=== PATIENT | male | born 1950 | race Caucasian/White ===

== ENCOUNTER → 2023-04-27 | Outpatient (CLI) | payer OTHER | END | disposition home or self-care (01) | LOC: LAB 12:52 | PROVIDERS: ATTEND Family Medicine | DX: E78.2 Mixed hyperlipidemia (principal); E78.5 Hyperlipidemia, unspecified; E55.9 Vitamin D deficiency, unspecified; J44.0 Chronic obstructive pulmonary disease with (acute) lower respiratory infection; R74.01 Elevation of levels of liver transaminase levels; R73.09 Other abnormal glucose | CPT/HCPCS: 82270 ==

== ENCOUNTER → 2023-07-03 | Outpatient (CLI) | payer OTHER ==
[2023-07-03 11:27] LABS: Alanine Aminotransferase 44 U/L (7-40); Albumin 4.4 g/dL (3.2-4.8); Alkaline Phosphatase 87 U/L (46-116); Anion Gap 7 (5-15); Aspartate Aminotransferase 27 U/L (13-40); BUN/Creatinine Ratio 16.9 (10.0-20.0); Blood Urea Nitrogen 14 mg/dL (9-23); Calcium 9.3 mg/dL (8.5-10.1); Carbon Dioxide 26 mmol/L (20-30); Chloride 107 mmol/L (98-107); Cholesterol 133 mg/dL (< 200); Glucose 92 mg/dL (74-106); LDL Cholesterol 73 mg/dL (< 100); Potassium 4.7 mmol/L (3.5-5.1); Sodium 140 mmol/L (136-145); Triglycerides 67 mg/dL (< 150)
[2023-07-03 11:28] LABS: Bilirubin, Total 1.1 mg/dL (0.2-1.0); HDL Cholesterol 54 mg/dL (40-59); Total Protein 7.1 g/dL (5.7-8.2)
== END | disposition home or self-care (01) ==
LOC: LAB 09:49
PROVIDERS: ATTEND Family Medicine
DX: Z12.11 Encounter for screening for malignant neoplasm of colon (principal); E78.2 Mixed hyperlipidemia; R73.09 Other abnormal glucose; E55.9 Vitamin D deficiency, unspecified; R74.9 Abnormal serum enzyme level, unspecified; Z85.820 Personal history of malignant melanoma of skin
CPT/HCPCS: 36415; 80053; 80061; 82306; 83036

== ENCOUNTER → 2023-12-30 | Outpatient (CLI) | payer OTHER ==
[2023-12-30 08:57] LABS: Albumin 4.2 g/dL (3.2-4.8); Bilirubin, Direct 0.3 mg/dL (<0.3); Bilirubin, Total 0.9 mg/dL (0.2-1.0)
[2023-12-30 08:58] LABS: Total Protein 6.9 g/dL (5.7-8.2)
== END | disposition home or self-care (01) ==
LOC: LAB 08:13
PROVIDERS: ATTEND Family Medicine
DX: E80.6 Other disorders of bilirubin metabolism (principal); E78.2 Mixed hyperlipidemia; N18.2 Chronic kidney disease, stage 2 (mild)
CPT/HCPCS: 36415; 80061; 80076; 82043

== ENCOUNTER → 2024-03-28 | Outpatient (CLI) | payer OTHER ==
[2024-03-28 08:10] LABS: Albumin 4.2 g/dL (3.2-4.8)
[2024-03-28 08:11] LABS: Bilirubin, Direct 0.3 mg/dL (<0.3); Total Protein 6.8 g/dL (5.7-8.2)
== END | disposition home or self-care (01) ==
LOC: LAB 06:15
PROVIDERS: ATTEND Family Medicine
DX: E78.2 Mixed hyperlipidemia (principal); E80.6 Other disorders of bilirubin metabolism
CPT/HCPCS: 36415; 80061; 80076

== ENCOUNTER 2024-06-21 10:10 | Day surgery (SDC) | payer OTHER, MEDICARE ==
[2024-06-20 15:12] LABS: Basophils # (auto) 0 10 ^3/uL (0-0.2); Basophils % (auto) 0.5 % (0.0-2.0); Eosinophils # (auto) 0.1 10 ^3/uL (0-0.8); Eosinophils % (auto) 0.7 % (0.0-7.0); Hematocrit 44.1 % (41.0-53.0); Hemoglobin 15.2 g/dL (13.5-17.5); Lymphocytes # (auto) 2.4 10 ^3/uL (0.4-5.4); Lymphocytes % (auto) 31.9 % (10.0-50.0); Mean Corpuscular Hemoglobin 31.6 pg (28.0-32.0); Mean Corpuscular Hgb Conc. 34.4 g/dL (32.0-36.0); Mean Corpuscular Volume 91.8 fL (80.0-100.0); Monocytes # (auto) 0.8 10 ^3/uL (0-1.3); Monocytes % (auto) 10.7 % (0.0-12.0); Neutrophils # (auto) 4.2 10 ^3/uL (1.6-8.6); Neutrophils % (auto) 56.2 % (37.0-80.0); Nucleated Red Blood Cells % 0.1 %; Platelet Count (auto) 206 10^3/uL (140-450); Red Blood Cells 4.81 10^6/uL (4.5-5.90); Red Cell Distribution Width 13.6 % (11.8-14.3); White Blood Cell 7.4 10^3/uL (4.4-10.8)
[2024-06-20 15:30] LABS: INR 0.99 (0.9-1.15); Partial Thromboplastin Time 29.1 SEC (24.5-34.5); Prothrombin Time 10.5 sec (9.3-11.8)
[2024-06-20 15:38] LABS: Alanine Aminotransferase 33 U/L (7-40); Albumin 4.4 g/dL (3.2-4.8); Alkaline Phosphatase 97 U/L (46-116); Anion Gap 6 (5-15); Aspartate Aminotransferase 23 U/L (13-40); BUN/Creatinine Ratio 23.1 (10.0-20.0); Bilirubin, Total 0.4 mg/dL (0.2-1.0); Calcium 9.9 mg/dL (8.7-10.4); Carbon Dioxide 27 mmol/L (20-31); Potassium 4.4 mmol/L (3.5-5.1); Sodium 142 mmol/L (136-145); Total Protein 7.3 g/dL (5.7-8.2)
[2024-06-20 15:43] LABS: Blood Urea Nitrogen 25 mg/dL (9-23); Chloride 109 mmol/L (98-107); Glucose 107 mg/dL (74-106)
[~2024-06-21] VITALS: Ht 190.5 cm; Wt 79.4 kg
[~2024-06-21 10:10] MED LIST: ATOR10TA52 PO; CALC667C PO; CHOL20007 PO; OMEG306C OR; SODIUM CHLORIDE LOCK 10 ML ONE
[2024-06-21] MEDS ORDERED: ONDANSETRON HCL 4 MG/2 ML VIAL ONE (14:12)
[2024-06-21] MEDS: ONDANSETRON HCL 4 MG/2 ML VIAL IV ONE (14:45)
[2024-06-21 16:00] VITALS: PULSE 87; RESP 16; O2SAT 100
[2024-06-21 16:05] VITALS: PULSE 87; RESP 16; O2SAT 100
[2024-06-21] MEDS: diphenhdrAMINE HCL 50 MG/1 ML VL ONE (16:05)
[2024-06-21] MEDS: fentaNYL CITRATE 100 MCG/2 ML VL ONE (16:05)
[2024-06-21] MEDS: LIDOCAINE VISCOUS 2% 15ML UD ONE (16:05)
[2024-06-21] MEDS: MIDAZOLAM HCL 5 MG/ML-1ML VIAL ONE (16:05)
[2024-06-21 16:20] VITALS: TEMP 97.4; O2SAT 96
--- NOTE | 2024-06-21 16:21 | DVHOP2 ---
Operative Report DATE OF OPERATION: 06/21/24 PROCEDURE: Upper Endoscopy with biopsy. PREOPERATIVE INDICATION: The patient is a 73 -year-old male undergoing endoscopy for chronic GERD and postprandial dyspepsia and epigastric pain POSTOPERATIVE DIAGNOSES: 1. 2 cm sliding-type hiatal hernia with grade B erosive esophagitis and esophageal ulcers of the GE junction from which biopsies were obtained 2. [id number] gastritis with pre-pyloric antral gastric erosions 3. Moderate duodenitis of the duodenal bulb and postbulbar area with superficial duodenal erosions and tiny ulcers but no active bleeding PROCEDURE PERFORMED BY: Rodri Lundy GI NURSE: Josefa SCOPE: Olympus videoendoscope. ASA CLASS: 2. PREOPERATIVE MEDICATIONS: Versed 5 mg, Fentanyl 100 mcg, Benadryl 50 mg I administered moderate sedation throughout this _9_ minutes procedure. An independent trained observer pushed medications at my direction, and monitored the patient's level of consciousness and physiological status throughout. PROCEDURE IN DETAIL: After obtaining an informed consent, the patient was placed on left lateral decubitus position. The patient was then sedated with the above medications. A bite block was placed between his teeth. The endoscope was then passed through the oropharynx, into the esophagus, and through the stomach and pylorus up to the second and third part of the duodenum. The endoscope was then withdrawn. The 2nd and 3rd part of the duodenum were normal. Duodenal bulb and postbulbar area showed moderate duodenitis. There were multiple duodenal erosions and two superficial duodenal ulcers. Duodenal biopsies were obtained The pre-pyloric area antrum and distal body showed gastritis with erosions hyperemia and some erythema. On retroflexion the fundus cardia and angularis were normal. Gastric biopsies were obtained. The endoscope was then withdrawn into the distal esophagus. He had a 2 cm sliding-type hiatal hernia. Patient had grade B erosive esophagitis with irregular squamocolumnar junction and distal GE junction ulceration from which biopsies were obtained The remaining distal and proximal esophagus and oropharynx were unremarkable The patient tolerated the procedure well without difficulty. COMPLICATIONS : None SPECIMENS: Duodenal biopsies Gastric biopsies Esophageal biopsies at GE junction DISPOSITION: Stable D/C to home PLAN: 1. Await for biopsy result 2. Will place pt on Protonix 40 mg bid 3. Carafate 1 g p.o. twice a day 4. DC aspirin NSAIDs smoking alcohol 5. Resume GI soft diet advance as tolerated 6. Outpatient follow up with me in 4-6 weeks to review results and discuss further management RODRI LUNDY MD Jun 21, 2024 16:21
[2024-06-21 17:05] VITALS: BP 127/66; PULSE 69; RESP 13; O2SAT 99
== END 2024-06-21 17:15 | disposition home or self-care (01) ==
LOC: GI 10:10
PROVIDERS: ATTEND Internal Medicine Gastroenterology
DX: R10.13 Epigastric pain (principal); K29.50 Unspecified chronic gastritis without bleeding; K29.80 Duodenitis without bleeding; K21.00 Gastro-esophageal reflux disease with esophagitis, without bleeding; K44.9 Diaphragmatic hernia without obstruction or gangrene; K22.10 Ulcer of esophagus without bleeding; K26.9 Duodenal ulcer, unspecified as acute or chronic, without hemorrhage or perforation; R10.9 Unspecified abdominal pain; Z79.899 Other long term (current) drug therapy; Z85.828 Personal history of other malignant neoplasm of skin; Z90.79 Acquired absence of other genital organ(s); Z98.890 Other specified postprocedural states; Z88.5 Allergy status to narcotic agent
CPT/HCPCS: 36415; 43239; 80053; 85025; 85610; 85730; 88305; 88312; 88342; J1200; J2250; J2405; J3010; J7030; 99152

== ENCOUNTER → 2024-07-22 | Outpatient (CLI) | payer OTHER ==
[~2024-07-22] MED LIST changes: -SODIUM CHLORIDE LOCK 10 ML ONE
[2024-07-22 07:26] LABS: Albumin 4.6 g/dL (3.2-4.8); Bilirubin, Total 1.1 mg/dL (0.2-1.0)
[2024-07-22 07:27] LABS: Bilirubin, Direct 0.3 mg/dL (<0.3); Total Protein 7.3 g/dL (5.7-8.2)
== END | disposition home or self-care (01) ==
LOC: LAB 06:17
PROVIDERS: ATTEND Family Medicine
DX: E78.5 Hyperlipidemia, unspecified (principal); E55.9 Vitamin D deficiency, unspecified; E80.6 Other disorders of bilirubin metabolism
CPT/HCPCS: 36415; 80061; 80076; 82306

== ENCOUNTER → 2024-09-16 | Outpatient (CLI) | payer OTHER ==
[2024-09-16 16:08] LABS: Urine Bacteria None Seen /hpf (None Seen)
[2024-09-16 18:48] LABS: Urine Blood Negative /uL (Negative); Urine Clarity Clear (Clear); Urine Color Light-Yellow (Yellow); Urine Protein, UAD Negative (Negative); Urine Specific Gravity 1.015 (1.001-1.035); Urine Squamous Epithelial Cell None Seen /hpf (<5); Urine Urobilinogen Normal (Negative); Urine WBC < 1 /HPF (0-3)
== END | disposition home or self-care (01) ==
LOC: LAB 16:04
PROVIDERS: ATTEND Urology
DX: C61 Malignant neoplasm of prostate (principal)
CPT/HCPCS: 81001; 87086

== ENCOUNTER → 2024-10-12 | Outpatient (CLI) | payer OTHER ==
[2024-10-12 07:37] LABS: Basophils # (auto) 0 10 ^3/uL (0-0.2); Basophils % (auto) 0.8 % (0.0-2.0); Eosinophils # (auto) 0.2 10 ^3/uL (0-0.8); Eosinophils % (auto) 3.8 % (0.0-7.0); Hemoglobin 14.6 g/dL (13.5-17.5); Lymphocytes % (auto) 33.1 % (10.0-50.0); Mean Corpuscular Hemoglobin 31.2 pg (28.0-32.0); Mean Corpuscular Volume 91.6 fL (80.0-100.0); Monocytes # (auto) 0.7 10 ^3/uL (0-1.3); Monocytes % (auto) 11.8 % (0.0-12.0); Neutrophils % (auto) 50.5 % (37.0-80.0); Nucleated Red Blood Cells % 0.1 %; Platelet Count (auto) 210 10^3/uL (140-450); Red Cell Distribution Width 13.7 % (11.8-14.3); White Blood Cell 5.9 10^3/uL (4.4-10.8)
[2024-10-12 07:52] LABS: Alanine Aminotransferase 28 U/L (7-40); Alkaline Phosphatase 92 U/L (46-116); Anion Gap 8 (5-15); Blood Urea Nitrogen 23 mg/dL (9-23); Calcium 9.7 mg/dL (8.7-10.4); Carbon Dioxide 26 mmol/L (20-31); Chloride 107 mmol/L (98-107); Glucose 100 mg/dL (74-106); Potassium 4.1 mmol/L (3.5-5.1); Sodium 141 mmol/L (136-145); Total Protein 7.2 g/dL (5.7-8.2)
[2024-10-12 07:53] LABS: Albumin 4.5 g/dL (3.2-4.8); Aspartate Aminotransferase 20 U/L (13-40); Bilirubin, Total 0.9 mg/dL (0.2-1.0)
[2024-10-13 18:07] LABS: Cholesterol 146 mg/dL (< 200); HDL Cholesterol 57 mg/dL (40-59); LDL Cholesterol 79 mg/dL (< 100); Triglycerides 55 mg/dL (< 150)
== END | disposition home or self-care (01) ==
LOC: LAB 06:49
PROVIDERS: ATTEND Family Medicine
DX: J44.9 Chronic obstructive pulmonary disease, unspecified (principal); E78.5 Hyperlipidemia, unspecified; R73.09 Other abnormal glucose; Z00.01 Encounter for general adult medical examination with abnormal findings; Z90.79 Acquired absence of other genital organ(s)
CPT/HCPCS: 36415; 80053; 80061; 82306; 83036; 84153; 84443; 85025

== ENCOUNTER → 2024-10-28 | Day surgery (SDC) | payer OTHER, MEDICARE ==
[2024-10-25 14:57] LABS: Basophils # (auto) 0.1 10 ^3/uL (0-0.2); Eosinophils # (auto) 0.2 10 ^3/uL (0-0.8); Eosinophils % (auto) 3.2 % (0.0-7.0); Hematocrit 42.8 % (41.0-53.0); Hemoglobin 14.5 g/dL (13.5-17.5); Lymphocytes % (auto) 32.8 % (10.0-50.0); Mean Corpuscular Hemoglobin 30.8 pg (28.0-32.0); Mean Corpuscular Hgb Conc. 33.8 g/dL (32.0-36.0); Mean Corpuscular Volume 91.1 fL (80.0-100.0); Monocytes # (auto) 0.8 10 ^3/uL (0-1.3); Monocytes % (auto) 13.5 % (0.0-12.0); Neutrophils # (auto) 3.1 10 ^3/uL (1.6-8.6); Neutrophils % (auto) 49.5 % (37.0-80.0); Nucleated Red Blood Cells % 0.2 %; Platelet Count (auto) 195 10^3/uL (140-450); Red Cell Distribution Width 13.8 % (11.8-14.3); White Blood Cell 6.2 10^3/uL (4.4-10.8)
[2024-10-25 15:01] LABS: INR 1.03 (0.9-1.15); Prothrombin Time 10.9 sec (9.3-11.8)
[2024-10-25 15:11] LABS: Alanine Aminotransferase 24 U/L (7-40); Albumin 4.4 g/dL (3.2-4.8); Alkaline Phosphatase 94 U/L (46-116); Anion Gap 5 (5-15); Aspartate Aminotransferase 18 U/L (13-40); BUN/Creatinine Ratio 18.9 (10.0-20.0); Blood Urea Nitrogen 17 mg/dL (9-23); Calcium 9.9 mg/dL (8.7-10.4); Carbon Dioxide 29 mmol/L (20-31); Chloride 107 mmol/L (98-107); Glucose 93 mg/dL (74-106); Potassium 4.9 mmol/L (3.5-5.1); Sodium 141 mmol/L (136-145); Total Protein 7.1 g/dL (5.7-8.2)
[2024-10-25 15:12] LABS: Bilirubin, Total 0.7 mg/dL (0.2-1.0)
[~2024-10-28] VITALS: Ht 190.5 cm; Wt 81.6 kg
[~2024-10-28] MED LIST changes: +SODIUM CHLORIDE LOCK 10 ML ONE
[2024-10-28 12:40] VITALS: PULSE 75; RESP 14; O2SAT 99
[2024-10-28] MEDS: fentaNYL CITRATE 100 MCG/2 ML VL ONE (12:43)
[2024-10-28] MEDS: MIDAZOLAM HCL 5 MG/ML-1ML VIAL ONE (12:43)
[2024-10-28] MEDS: diphenhdrAMINE HCL 50 MG/1 ML VL ONE (12:43)
[2024-10-28 13:05] VITALS: PULSE 78; RESP 14; O2SAT 98
--- NOTE | 2024-10-28 13:09 | DVHOP2 ---
Operative Report DATE OF OPERATION: 10/28/24 PROCEDURE: Diagnostic Colonoscopy. PREOPERATIVE INDICATION: The patient is a 74 -year-old male undergoing colonoscopy for colon cancer screening and abdominal pain POSTOPERATIVE DIAGNOSES: 1. Mild early sigmoid diverticular disease with a single small pocket noted 2. Mild tortuosity of the splenic flexure 3. Trace to 1+ internal hemorrhoids otherwise normal examination up to the cecum and terminal ileum PROCEDURE PERFORMED BY: Rodri Lundy M.D. SCOPE: Olympus videocolonoscope. ASA CLASS: 2. PREOPERATIVE MEDICATIONS: Versed 5 mg, Fentanyl 100 mcg, Benadryl 50 mg PROCEDURE IN DETAIL: After obtaining an informed consent, the patient was placed on left lateral decubitus position. He was then sedated with the above medications. A rectal examination was performed that was normal. The colonoscope was then passed through the anus into the rectosigmoid and through the descending, transverse, and ascending colon up to the cecum with visualization of the appendiceal orifice, base of the cecum and the ileocecal valve. The colonoscope was then withdrawn. The distal 5 cm of the terminal ileum were normal No polyps or masses were seen. There was no colitis. In the sigmoid colon there was a early single pocket of sigmoid diverticular disease noted Patient had [id number] tortuosity of the splenic flexure. On retroflexion and straight on view he had trace to 1+ internal hemorrhoids The patient tolerated the procedure well without difficulty. WITHDRAWAL TIME: 6 minutes QUALITY OF THE PREP: Wayside Bowel Prep score: 9. COMPLICATIONS : None SPECIMENS: None DISPOSITION: Stable D/C to home PLAN: 1. Repeat colonoscopy in 10 years 2. Resume GI soft diet advance as tolerated 3. Increase fluid and fiber intake 4. Outpatient follow up with me in 4-6 weeks to review results and discuss further management RODRI LUNDY MD Oct 28, 2024 13:09
[2024-10-28 13:55] VITALS: BP 120/95; PULSE 71; RESP 15; O2SAT 100
== END | disposition home or self-care (01) ==
LOC: GI 09:12
PROVIDERS: ATTEND Internal Medicine Gastroenterology
DX: R10.9 Unspecified abdominal pain (principal); K57.30 Diverticulosis of large intestine without perforation or abscess without bleeding; K63.89 Other specified diseases of intestine; E78.00 Pure hypercholesterolemia, unspecified; Z79.899 Other long term (current) drug therapy; Z87.11 Personal history of peptic ulcer disease; Z98.890 Other specified postprocedural states; Z90.79 Acquired absence of other genital organ(s); Z88.5 Allergy status to narcotic agent
CPT/HCPCS: 36415; 45378; 80053; 85025; 85610; 85730; J1200; J2250; J3010; J7030; 99152

== ENCOUNTER 2024-12-18 07:19 | Emergency (ER) | payer OTHER, MEDICARE ==
[~2024-12-18] VITALS: Ht 190.5 cm; Wt 75.8 kg
[~2024-12-18 07:19] MED LIST changes: -SODIUM CHLORIDE LOCK 10 ML ONE
--- NOTE | 2024-12-18 07:34 | ED.PDOC ---
Eye-HPI HPI Comments 74 y/o M, presents to the ED for CC of sore-throat and ear pain. Patient states, he has been experiencing symptoms of sore throat with associated itchiness, swelling, and ear pain x1day. Patient reports, having sick contacts at home which he believes may have been source of symptoms. Patient denies fever, cough, nausea, vomiting, or fatigue. No other symptoms or modifying factors present at this time. Time Seen by MD: 07:35 Reviewed Notes: Nurses Notes, Medications, Allergies Allergies: Coded Allergies: Codeine (Verified Allergy, Intermediate, Vomiting, 06/20/24) Home Meds Reported Medications [place]-3 Fatty Acids (FISH OIL) 306 Mg Cap, 306 MG OR, CAP 06/20/24 Cholecalciferol (VITAMIN D3) 2,000 Unit Tab, 1 TAB PO DAILY, #30 TAB 5 Refills 06/20/24 Calcium Acetate (Phosphate Bin (Calcium Acetate) 667 Mg Cap, 667 MG PO TIDWM for 30 Days, MG 06/20/24 Atorvastatin Calcium (ATORVASTATIN CALCIUM) 10 Mg Tab, 1 TAB PO DAILY, #30 TAB 5 Refills 06/20/24 Information Source: Patient Mode of Arrival: Ambulatory Timing: Days Duration: Since onset Prehospital treatment: None Quality: Pain Lids: Normal Conjunctiva: Normal Cornea: Normal Pupils: Normal EOM: Normal Fundus: Normal Slit lamp exam: Normal Anterior chamber: Normal Mouth: Normal ENT Ear Exam: Normal Nose: Normal Sinuses: Normal Oropharynx: Normal Onset: Spontaneous Throat Exposed to: None History of: None Last Tetanus: Unknown Associated signs and symptoms: Sore Throat, Ear Pain Family History Family History: Unknown Social History Smoker: Non-Smoker Alcohol: Denies ETOH Use Drugs: Denies Drug Use Lives In: Home Constitutional: denies: chills, diaphoresis, fatigue, fever, malaise, sweats, weakness, others EENTM: reports: eye pain, throat pain, throat swelling; denies: blurred vision, double vision, ear bleeding, ear discharge, ear drainage, ear pain, ear ringing, eye redness, hearing loss, mouth pain, mouth swelling, nasal discharge, nose bleeding, nose congestion, nose pain, photophobia, tearing, voice changes, others Respiratory: denies: cough, hemoptysis, orthopnea, SOB at rest, shortness of breath, SOB with excertion, stridor, wheezing, others Cardiovascular: denies: chest pain, dizzy spells, diaphoresis, Dyspnea on exertion, edema, irregular heart beat, left arm pain, lightheadedness, palpitations, PND, syncope, others Gastrointestinal: denies: abdomen distended, abdominal pain, blood streaked bowels, constipated, diarrhea, dysphagia, difficulty swallowing, hematemesis, melena, nausea, poor appetite, poor fluid intake, rectal bleeding, rectal pain, vomiting, others Genitourinary: denies: burning, dysuria, flank pain, frequency, hematuria, in continence, penile discharge, penile sore, pain, testicle pain, testicle swelling, urgency, others Neurological: denies: dizziness, fainting, headache, left sided numbness, left sided weakness, numbness, paresthesia, pre-existing deficit, right sided numbness, right sided weakness, seizure, speech problems, tingling, tremors, weakness, others Musculoskeletal: denies: back pain, gout, joint pain, joint swelling, muscle pain, muscle stiffness, neck pain, others Integumetry: denies: bruises, change in color, change in hair/nails, dryness, laceration, lesions, lumps, rash, wounds, others Allergic/Immunocompromised: denies: Difficulty Healing, Frequent Infections, Hives, Itching, others Hematologic/Lymphatic: denies: anemia, blood clots, easy bleeding, easy bruising, swollen glands, others Endocrine: denies: excessive hunger, excessive sweating, excessive thirst, excessive urination, flushing, intolerance to cold, intolerance to heat, unexplained weight gain, unexplained weight loss, others Psychiatric: denies: anxiety, bipolar disorder, depression, hopeless, panic disorder, schizophrenia, sleepless, suicidal, others All Other Systems: Reviewed and Negative Physical Exam General Appearance: No Apparent Distress, Normal HEENT: Normal ENT Inspection, Pharynx Normal, TMs Normal Neck: Full Range of Motion, Non-Tender, Normal, Normal Inspection Respiratory: Chest Non-Tender, Lungs Clear, No Accessory Muscle Use, No Respiratory Distress, Normal Breath Sounds Cardiovascular: No Edema, No Murmur, No Gallop, Normal Peripheral Pulses, Regular Rate/Rhythm Breast Exam: Deferred Gastrointestinal: No Organomegaly, Non Tender, No Pulsatile Mass, Normal Bowel Sounds, Soft Genitalia: Deferred Pelvic: Deferred Rectal: Deferred Extremities: No calf tenderness, Normal capillary refill, Normal inspection, Normal range of motion, Non-tender, No pedal edema Musculoskeletal : Apperance: Normal Neurologic: Alert, wet machine operator II-XII nml as Tested, No Motor Deficits, Normal Affect, Normal Mood, No Sensory Deficits Cerebellar Function: Normal Reflexes: Normal Skin: Dry, Normal Color, Warm Lymphatic: No Adenopathy Was a procedure done? Was a procedure done?: No EENT DIFF Eye: N/A Ear: Otitis Externa, Otitis Media, Pharyngitis, Sinusitis Nose: N/A Mouth: N/A Sore Throat: Epiglottitis, Hand Foot Mouth Disease, Herpangina, Herpetic Stomatitis, Mononeucleosis, Rojas's Angina, Peritonsillar Abscess, Peritonsillar Cellulitis, Pharyngitis, Diptheria, Streptococcal, Viral Pharyngi tis, URI X-Ray, Labs, Meds, VS Vital Signs Date Time Temp Pulse Resp B/P (MAP) Pulse Ox O2 Delivery O2 Flow Rate FiO2 12/18/24 07:37 98.1 82 16 112/74 (87) 98 98.1 Time of 1ST Reevaluation: 08:05 Reevaluation 1ST: Unchanged Patient Education/Counseling: Diagnosis, Treatment, Prognosis, Need For Follow Up Family Education/Counseling: No Family Present Comments pt is wel appearing with inflamed posterior pharynx. i will start him on ampicillin Additional Information Previous visits reviewed: The following tests were ordered, and results were reviewed by me: Additional Information was gathered from interviewing the following independent historians: None I reviewed and agreed with the following test results read by other providers: None I discussed treatment and results with medical personnel and: patient Comprehensive systems review obtained and negative except for what is stated in the HPI. Departure 1 Departure Time of Disposition: 07:50 Impression: Primary Impression: Sore throat Disposition: 01 HOME / SELF CARE / HOMELESS Condition: Good e-Prescriptions Amoxicillin & Pot Clavulanate (AUGMENTIN TABLET) 875 Mg Tb 875 MG PO BID for 7 Days, #14 TAB Prov: ADEBAYO REYES MD 12/18/24 Discharged With: Self Critical Care Note Critical Care Time?: No Stability Stability form required: No Heart Score Heart Score: Heart Score Response (Comments) Value History N/A 0 EKG N/A 0 Age N/A 0 Risk Factors N/A 0 Troponin N/A 0 Total 0 I personally scribed for ADEBAYO REYES MD ([email or web address]) on 12/18/24 at 07:34. Electro nically submitted by Audelia Peterson ([email or web address]). I personally scribed for ADEBAYO REYES MD ([email or web address]) on 12/18/24 at 07:48. Electronically submitted by Audelia Peterson ([email or web address]). ADEBAYO REYES MD Dec 18, 2024 07:34
[2024-12-18 07:37] VITALS: BP 112/74; PULSE 82; RESP 16; TEMP 98.1; O2SAT 98
[2024-12-18] MEDS ORDERED: AUG875T PO (07:51)
== END 2024-12-18 08:05 | disposition home or self-care (01) ==
LOC: ER 07:19
DX: J02.9 Acute pharyngitis, unspecified (principal); H92.09 Otalgia, unspecified ear; Z79.899 Other long term (current) drug therapy; Z88.5 Allergy status to narcotic agent